=== PATIENT | male | born 1975 | race African-American/Black ===

== ENCOUNTER 2023-05-20 21:22 | Emergency (ER) | payer OTHER ==
[~2023-05-20] VITALS: Ht 175.3 cm; Wt 77.0 kg
[2023-05-20 21:35] VITALS: TEMP 98; O2SAT 98
[2023-05-20] MEDS ORDERED: IBUPROFEN 600MG TABLET PO STA (21:53)
[2023-05-21] MEDS ORDERED: TETANUS, DIPHTHERIA, PERTUSSIS VAC/PF 0.5ML (>10YR OLD) IM ONE (01:30)
[2023-05-21] MEDS ORDERED: HYDROCODONE/ACETAMINOPHEN 10/325MG TABLET PO ONE (01:30)
[2023-05-21] MEDS ORDERED: T3 PO (01:34)
[2023-05-21] MEDS ORDERED: AMOX1TAB16 MT (01:34)
[2023-05-21] MEDS ORDERED: IBUP-2029 MT (01:34)
[2023-05-21 01:53] VITALS: BP 138/91; PULSE 70; RESP 18
[2023-05-21] MEDS: IBUPROFEN 600MG TABLET PO NR (01:53)
[2023-05-21] MEDS: HYDROCODONE/ACETAMINOPHEN 10/325MG TABLET PO NR (01:53)
== END 2023-05-20 22:15 | disposition home or self-care (01) ==
LOC: ER 21:43
DX: S02.2XXA Fracture of nasal bones, initial encounter for closed fracture (principal); Z88.0 Allergy status to penicillin; V49.9XXA Car occupant (driver) (passenger) injured in unspecified traffic accident, initial encounter; Y93.89 Activity, other specified; Y92.89 Other specified places as the place of occurrence of the external cause; Y99.8 Other external cause status
CPT/HCPCS: 70486; 99291